=== PATIENT | female | born 1990 | race Caucasian/White ===

== ENCOUNTER → 2016-07-22 | Outpatient (CLI) | payer OTHER ==
[~2016-07-22] MED LIST: MOTR200T40 PO; TYLE325T5 PO; VITAPRTA PO
[2016-07-22 14:12] LABS: BASO % 0.4 % (0.0-1.0); EOS # 0.1 K/mm3 (0.0-0.50); EOS % 2.1 % (0.0-3.0); LARGE UNSTAINED CELL # 0.1 K/mm3 (0.0-0.4); LARGE UNSTAINED CELL % 1.1 % (0.0-4.0); LYMPH # 1.6 K/mm3 (1.5-6.5); LYMPH % 25.8 % (24.0-44.0); MEAN CORPUSCULAR HEMOGLOBIN 31.6 pg (27.0-33.0); MEAN CORPUSCULAR VOLUME 90.3 fl (80.0-96.0); MONO # 0.2 K/mm3 (0.0-0.8); MONO % 3.4 % (0.0-5.0); NEUTROPHILS # 4.2 K/mm3 (1.8-7.7); NEUTROPHILS % 67.2 % (36.0-66.0); PLATELET COUNT, AUTOMATED 234 k/mm3 (150-450); RED CELL DISTRIBUTION WIDTH 12.3 % (11.5-14.5); WHITE BLOOD COUNT 6.2 K/mm3 (4.0-10.0)
[2016-07-22 18:04] LABS: HIV SCRN NEGATIVE (NEGATIVE)
[2016-07-22 18:05] LABS: CONTROL LINE INT CTR LINE PRESENT; HIV SCRN1 NEGATIVE (NEGATIVE)
[2016-07-23 08:52] LABS: HBsAg Prenatal NEGATIVE (NEGATIVE)
== END ==
LOC: M SMT 10:05
PROVIDERS: ATTEND Advanced Practice Midwife
DX: Z34.81 Encounter for supervision of other normal pregnancy, first trimester (principal)

== ENCOUNTER → 2016-09-09 | Outpatient (CLI) | payer OTHER ==
[~2016-09-09] MED LIST changes: -MOTR200T40 PO; +MOTR200T44 PO
--- NOTE | 2016-09-10 12:06 | REP ---
OBSTETRIC SONOGRAPHY: HISTORY: Supervision of for anatomy. FINDINGS: Scanning through the gravid uterus demonstrates a viable single intrauterine gestation in a variable lie. motion is observed and heart rate is recorder 150 beats per minute. An anterior grade 0 placenta is seen without evidence of previa or abruption. Amniotic fluid is subjectively normal. Closed cervical length is 4.9 cm, viewed transabdominally. No extrauterine abnormality is observed. No anomaly is seen. The following anatomic structures are identified and felt to be sewn sonographically unremarkable: cranium, choroid plexus, cavum, cerebellum and posterior fossa, face and profile, lungs, four-chamber heart with left and right ventricular outflow tract views, diaphragm, left-sided stomach, abdominal wall cord insertion, three-vessel umbilical cord, kidneys and bladder, spine, upper and lower extremities. Biometry Chart: BPD 4.6 cm = 19 weeks 6 days HC 17.2 cm = 19 weeks 5 days AC 14.2 cm = 19 weeks 4 days FL 2.8 cm = 18 weeks 4 days HC/AC ratio normal 1.21 Cephalic index normal 0.73. Estimated weight 278 grams, 0 pounds 9 ounces, 32nd percentile for 19 weeks 4 days. IMPRESSION: Viable single intrauterine gestation at 19 weeks 4 days by today's composite criteria. SREE by today's sonography January 30, 2017. No anomaly is seen.
== END ==
LOC: M WHC 09:55
PROVIDERS: ATTEND Advanced Practice Midwife
DX: Z36 Encounter for antenatal screening of mother (principal); Z3A.19 19 weeks gestation of pregnancy

== ENCOUNTER → 2016-10-14 | Outpatient (REF) | payer OTHER | LOC: M WUC 16:16 | PROVIDERS: ATTEND Physician Assistant | DX: J02.9 Acute pharyngitis, unspecified (principal) ==

== ENCOUNTER → 2016-11-18 | Outpatient (CLI) | payer OTHER ==
[2016-11-18 13:44] LABS: MEAN CORPUSCULAR HEMOGLOBIN 32.3 pg (27.0-33.0); MEAN CORPUSCULAR HGB CONC 34.3 g/dl (32.0-36.5); MEAN CORPUSCULAR VOLUME 94.4 fl (80.0-96.0); RED CELL DISTRIBUTION WIDTH 12.7 % (11.5-14.5)
== END ==
LOC: M SMT 09:52
PROVIDERS: ATTEND Obstetrics & Gynecology
DX: Z34.82 Encounter for supervision of other normal pregnancy, second trimester (principal)

== ENCOUNTER → 2017-01-07 | Outpatient (REF) | payer OTHER | LOC: M LAB REF 17:08 | PROVIDERS: ATTEND Obstetrics & Gynecology | DX: Z34.83 Encounter for supervision of other normal pregnancy, third trimester (principal) ==

== ENCOUNTER 2017-02-02 10:47 | Inpatient (IN) | payer OTHER ==
[~2017-02-02] VITALS: Ht 160 cm; Wt 77.0 kg
[2017-02-02] VITALS (18 sets, daily range): BP systolic 100–145; BP diastolic 58–88
[2017-02-02] MEDS ORDERED: PENICILLIN G POTASSIUM IV 5 MU in D5W MINI-BAG PLUS 100 ML IV STA (11:03)
[2017-02-02 11:23] LABS: MEAN CORPUSCULAR HEMOGLOBIN 30.9 pg (27.0-33.0); MEAN CORPUSCULAR HGB CONC 34.4 g/dl (32.0-36.5); MEAN CORPUSCULAR VOLUME 89.9 fl (80.0-96.0); RED CELL DISTRIBUTION WIDTH 13.6 % (11.5-14.5); WHITE BLOOD COUNT 9.3 K/mm3 (4.0-10.0)
--- NOTE | 2017-02-02 11:34 | HPE ---
DATE OF ADMISSION: 02/02/2017 Martha is a 26-year-old, 3, para 1-0-1-1, at 40-3/7 weeks gestation with an estimated date of confinement (EDC) of 01/30/2017 based on first trimester ultrasound. She presents to labor and delivery today for induction of labor due to post dates per consult with Dr. Estefany Tellez. She denies regular contractions, vaginal bleeding and leakage of fluid. Her fetus has been active. care was initiated at [facility] in the first trimester. course has been uncomplicated. OBSTETRIC HISTORY: July of 2014, at 41 weeks gestation, she had a spontaneous vaginal delivery for a 7 pound 8 ounce female. April of 2016, she had a spontaneous miscarriage. OB LABS: Blood type is O negative. Antibody screen negative. Pap was normal. Rubella immune, VDRL nonreactive. Urine culture no growth. Hepatitis B surface antigen negative. HIV negative. Hepatitis C antibody nonreactive. Gonorrhea and chlamydia negative. She did decline all genetic serum screening markers. Gestational diabetic screening normal at 112 and her GBS is positive. PAST MEDICAL HISTORY: Childhood varicella. SURGERIES: None. FAMILY HISTORY: Hypertension. SOCIAL HISTORY: The patient is . Her is at bedside and supportive. She is a nonsmoker. Denies alcohol and drug use. No history of any sexually transmitted infections and no history of abuse physical, sexual or emotional. ALLERGIES: NO KNOWN DRUG ALLERGIES. CURRENT MEDICATIONS: Include: - Zyrtec 10 mg daily - Ventolin inhaler as needed - vitamin OBJECTIVE: Temperature 97.7, pulse 100, respirations 18. Initial blood pressure 145/76. She is alert and oriented times three. She is in no apparent distress, smiling and talkative. heart rate is 145 with moderate variability. Positive accelerations observed and no decelerations observed. There is no pattern of regular contractions. Her abdomen is gravid, cephalic presentation. Estimated weight 7 pounds. Sterile vaginal exam: 1 cm dilated, 80% effaced, minus 3 station. Membranes are intact. No show with exam. ASSESSMENT: Intrauterine at 40-3/7 weeks gestation. heart rate category 1. PLAN: Admit patient to labor and delivery. Out of bed ad norma. Regular diet at this time. Labs including a pre-eclamptic profile and a spot urine. Misoprostol 50 mcg by mouth for cervical ripening. Will likely start intravenous (IV) Pitocin. The patient does desire an epidural for her labor coping. Will likely have planned around to augment her labor once patient is comfortable with an epidural and labor. I do anticipate labor and a spontaneous vaginal delivery. I did review the risks of inductions with patient and her including but not limited to failed induction, intolerance to labor and increased risk for section. The patient did have all of her questions answered and does desire to proceed with induction of labor at this time. MTDD
[2017-02-02 11:50] LABS: ALT/SGPT 18 U/L (12-78); AST/SGOT 24 U/L (15-37); BILIRUBIN,TOTAL 0.3 MG/DL (0.2-1.0); CREATININE FOR GFR 0.72 MG/DL (0.55-1.02); GLOMERULAR FILTRATION RATE > 60.0 (>60); URIC ACID 5.7 MG/DL (2.6-6.0)
[2017-02-02] MEDS ORDERED: miSOPROStol 50 MCG 1/2 TAB (S0191) PO ONE (12:00)
[2017-02-02] MEDS: PENICILLIN G POTASSIUM IV 2.5 MU in D5W 100 ML IV SCH ×2 (15:29→20:26)
[2017-02-02] MEDS ORDERED: OXYTOCIN 30 UNITS IN 0.9% NaCl 500ML IV BAG (J2590) As Ordered ONE (16:55)
[2017-02-02] MEDS ORDERED: OXYTOCIN DRIP 30 UNITS in APPROPRIATE DILUENT 1 EA IV SCH (17:00)
[2017-02-02] MEDS: LR 1,000 ML IV SCH (17:08)
[2017-02-03] VITALS (40 sets, daily range): BP systolic 78–140; BP diastolic 40–82
[2017-02-03] MEDS: PENICILLIN G POTASSIUM IV 2.5 MU in D5W 100 ML IV SCH ×2 (00:05→03:53)
[2017-02-03] MEDS ORDERED: FENTANYL/ROPIVACAINE/NACL BAG 200 ML EPIDURAL SCH (00:58)
[2017-02-03] MEDS ORDERED: REFRIGERATOR IV KEYS XX PRN (00:58)
[2017-02-03] MEDS ORDERED: NALOXONE INJ 0.4 MG/1 ML VIAL (J2310) IV PRN (00:58)
[2017-02-03] MEDS ORDERED: EPIDURAL/PCA KEYS XX PRN (00:58)
[2017-02-03] MEDS ORDERED: LACTATED RINGER'S 1000 ML IV PRN (00:58)
[2017-02-03] MEDS ORDERED: ONDANSETRON 4MG/2ML VIAL (J2405) IV PRN (00:58)
[2017-02-03] MEDS ORDERED: diphenhydrAMINE INJ 50MG/ML VIAL (J1200) IV PRN (00:58)
[2017-02-03] MEDS ORDERED: ePHEDrine SULFATE 25 MG/5 ML(5MG/ML) SYRINGE IV PRN (00:58)
[2017-02-03] MEDS ORDERED: EPIDURAL COMMENT XX SCH (00:58)
[2017-02-03] MEDS ORDERED: FENTANYL 2MCG/ML ROPIVACAINE 0.2% IN 0.9% NACL 200ML IVBAG As Ordered ONE (01:03)
[2017-02-03] MEDS: LR 1,000 ML IV SCH (03:52)
[2017-02-03 05:34] LABS: CORD GAS ABE V -2.1; CORD GAS HCO3 V 24.9 MEQ/L; CORD GAS O2 SAT V 34.9 %; CORD GAS PCO2 V 50.6 mmHg; CORD GAS PH V 7.31 UNITS; CORD GAS PO2 V 19.4 mmHg; CORD GAS TCO2 V 26.5 MEQ/L
[2017-02-03] MEDS ORDERED: OXYTOCIN DRIP 30 UNITS in APPROPRIATE DILUENT 1 EA IV SCH (05:34)
[2017-02-03 05:36] LABS: CORD GAS ABE A -5.7; CORD GAS HCO3 A 22.8 MEQ/L; CORD GAS O2 SAT A 30.3 %; CORD GAS PCO2 A 56.2 mmHg; CORD GAS PH A 7.226 UNITS; CORD GAS PO2 A 18.4 mmHg; CORD GAS SBC A 18.2 MEQ/L; CORD GAS TCO2 A 24.5 MEQ/L
[2017-02-03] MEDS ORDERED: MEASLES,MUMPS,RUBELLA VACCINE INJ (MMR-II) (90707) SC SCH (05:45)
[2017-02-03] MEDS ORDERED: DIBUCAINE 1% OINTMENT 30GM TOP PRN (05:45)
[2017-02-03] MEDS ORDERED: METHYLERGONOVINE MALEATE 0.2 MG TAB PO PRN (05:45)
[2017-02-03] MEDS ORDERED: DOCUSATE SODIUM 100 MG CAP PO PRN (05:45)
[2017-02-03] MEDS ORDERED: RHOGAM 300 MCG (1500 IU) INJ (J2790) IM SCH (05:45)
[2017-02-03] MEDS ORDERED: ANUSOL HC CREAM 30GM TOP PRN (05:45)
[2017-02-03] MEDS: IBUPROFEN 800 MG TAB PO PRN ×2 (05:55→15:58)
[2017-02-03] MEDS: ACETAMINOPHEN 500 MG TAB PO PRN ×4 (05:56→19:44)
--- NOTE | 2017-02-03 06:12 | DN ---
DATE: 02/03/2017 Martha is a 26-year-old 3, para 2-0-1-2 now who was admitted to labor and delivery for induction of labor. Misoprostol and IV Pitocin was used and labor did ensue. She did utilize an epidural for her labor coping. She progressed to full dilation at 0425. She pushed to a normal spontaneous vaginal delivery of a live male infant in occiput anterior (OA) position with restitution to left occiput transverse (LOT) position at 0506. There is a nuchal cord times three, loose, but was reduced with a somersault maneuver at the time of delivery. was placed on maternal abdomen crying and active. His mouth and nares were bulb suctioned. The cord was clamped x2 and cut by the father of the baby. Cord gases and cord blood was obtained. Uterine hemostasis achieved with IV Pitocin rapid infusion and uterine fundal massage. Estimated blood loss 200 cc following expulsion of an intact placenta with three-vessel cord by Parker mechanism at 0512. Perineum and vagina were inspected and noted to have a peroneal abrasion. The abrasion was repaired with 3-0 Rapide for hemostasis. Felda male weighed 3028 grams, 7 pounds 2 ounces at 39. Mom and are naming their son Chema and the mom does plan to breastfeed. At the close of delivery, lap counts, instrument counts, needle counts were correct and verified.
[2017-02-03] MEDS: OXYTOCIN DRIP 30 UNITS in APPROPRIATE DILUENT 1 EA IV SCH ×3 (08:38→16:38)
[2017-02-03] MEDS ORDERED: METHYLERGONOVINE MALEATE 0.2 MG/ML VIAL (J2210) IM STA (08:38)
[2017-02-03] MEDS ORDERED: METHYLERGONOVINE MALEATE 0.2 MG/ML VIAL (J2210) As Ordered ONE (08:39)
[2017-02-03] MEDS: PRENATAL VITAMINS CHEWABLE TABLET PO SCH (09:00)
[2017-02-03] MEDS ORDERED: miSOPROStol 200 MCG TAB (S0191) PR ONE (09:00)
[2017-02-03 12:20] LABS: MEAN CORPUSCULAR HEMOGLOBIN 31.5 pg (27.0-33.0); MEAN CORPUSCULAR HGB CONC 34.9 g/dl (32.0-36.5); MEAN CORPUSCULAR VOLUME 90.3 fl (80.0-96.0); RED CELL DISTRIBUTION WIDTH 13.7 % (11.5-14.5)
[2017-02-04] VITALS (8 sets, daily range): BP systolic 83–124; BP diastolic 53–78
[2017-02-04] MEDS: IBUPROFEN 800 MG TAB PO PRN ×3 (01:54→19:27)
[2017-02-04] MEDS: PRENATAL VITAMINS CHEWABLE TABLET PO SCH (07:55)
[2017-02-04] MEDS: ACETAMINOPHEN 500 MG TAB PO PRN ×2 (07:56→14:13)
[2017-02-04 07:57] LABS: MEAN CORPUSCULAR HEMOGLOBIN 31.7 pg (27.0-33.0); MEAN CORPUSCULAR HGB CONC 34.5 g/dl (32.0-36.5); MEAN CORPUSCULAR VOLUME 91.8 fl (80.0-96.0); RED CELL DISTRIBUTION WIDTH 13.7 % (11.5-14.5); WHITE BLOOD COUNT 9.4 K/mm3 (4.0-10.0)
[2017-02-05 06:04] VITALS: BP 114/79
[2017-02-05] MEDS: IBUPROFEN 800 MG TAB PO PRN (06:20)
[2017-02-05] MEDS: PRENATAL VITAMINS CHEWABLE TABLET PO SCH (08:07)
== END 2017-02-05 10:15 | disposition home or self-care (01) | DRG 560 ==
LOC: M LDI 10:47 → M OBS 02-03 11:44
PROVIDERS: ADMIT Advanced Practice Midwife; ATTEND Advanced Practice Midwife
PROC: 3E0DXGC Introduction of Other Therapeutic Substance into Mouth and Pharynx, External Approach (ICD-10-PCS; 2017-02-02)
PROC: 10E0XZZ Delivery of Products of Conception, External Approach (ICD-10-PCS; principal; 2017-02-03)
DX: O48.0 Post-term pregnancy (principal); O72.1 Other immediate postpartum hemorrhage; Z37.0 Single live birth; Z3A.40 40 weeks gestation of pregnancy; O69.82X0 Labor and delivery complicated by other cord entanglement, without compression, not applicable or unspecified

== ENCOUNTER → 2018-08-25 | Outpatient (REF) | payer OTHER, SELFPAY | LOC: M LAB REF 16:52 | PROVIDERS: ATTEND Advanced Practice Midwife | DX: Z12.4 Encounter for screening for malignant neoplasm of cervix (principal) ==

== ENCOUNTER 2019-03-13 09:09 | Emergency (ER) | payer SELFPAY ==
[~2019-03-13] VITALS: Ht 160 cm; Wt 63.6 kg
[2019-03-13] MEDS ORDERED: [UNRECOGNIZED DRUG - CODE] (09:17)
[2019-03-13] MEDS ORDERED: NS 1,000 ML IV ONE (11:00)
[2019-03-13 11:21] LABS: BASO % 0.2 % (0.0-1.0); EOS % 0.2 % (0.0-3.0); HEMATOCRIT 43.2 % (36.0-47.0); HEMOGLOBIN 14.7 g/dl (12.0-15.5); LYMPH # 2.4 10^3/uL (1.5-5.0); MEAN CORPUSCULAR HEMOGLOBIN 31.5 pg (27.0-33.0); MEAN CORPUSCULAR VOLUME 92.7 fl (80.0-96.0); MONO # 0.4 10^3/uL (0.0-0.8); NEUTROPHILS # 5.9 10^3/uL (1.5-8.5); NEUTROPHILS % 67.1 % (36.0-66.0); PLATELET COUNT, AUTOMATED 297 10^3/uL (150-450); RED BLOOD COUNT 4.66 10^6/uL (4.00-5.40); WHITE BLOOD COUNT 8.8 10^3/uL (4.0-10.0)
[2019-03-13] MEDS ORDERED: ISOVUE-370 76% 100ML VIAL (Q9967) As Ordered ONE (11:33)
[2019-03-13 11:46] LABS: ALBUMIN 3.8 GM/DL (3.2-5.2); ALT/SGPT 21 U/L (12-78); BILIRUBIN,DIRECT < 0.1 MG/DL (0.0-0.2); BILIRUBIN,TOTAL 0.3 MG/DL (0.2-1.0); LIPASE 128 U/L (73-393); TOTAL PROTEIN 7.6 GM/DL (6.4-8.2)
--- NOTE | 2019-03-13 12:10 | REP ---
Clinical: Lower abdominal pain. Technique: Axial contrast enhanced images from the lung bases to the pubic symphysis using 100 ml Isovue 370 intravenous contrast material with coronal and sagittal re-formations. Findings: Lung bases are clear. Visualized heart and pericardium normal. Liver, spleen, pancreas, gallbladder, bilateral adrenal glands and kidneys are normal. The enteric system is without obstruction or acute inflammatory process. Normal terminal ileum and appendix are identified in the right lower quadrant. Pelvis demonstrates normal bladder and age-appropriate uterus/adnexa. Small amount of free pelvic fluid may be related to patient's symptoms and menstrual cycle including possible ruptured right ovarian cyst. IMPRESSION: 1. Small amount of free pelvic fluid may be related to patient's symptoms and menstrual cycle including possible ruptured right ovarian cyst. 2. Normal appendix. Electronically Signed by Rafael Borja MD 03/13/2019 12:02 P
[2019-03-13 12:44] VITALS: BP 107/65
== END 2019-03-13 12:43 | disposition home or self-care (01) ==
LOC: M ED 09:09
DX: N83.291 Other ovarian cyst, right side (principal)
CPT/HCPCS: 36415; 74177; 80047; 80076; 81001; 83690; 84702; 85025; 96360; 99284; Q9967

== ENCOUNTER → 2019-08-28 | Outpatient (REF) | payer OTHER ==
[~2019-08-28] MED LIST changes: +[UNRECOGNIZED DRUG - CODE]
== END ==
LOC: M PLALAB 11:17
PROVIDERS: ATTEND Advanced Practice Midwife
DX: Z12.4 Encounter for screening for malignant neoplasm of cervix (principal)

== ENCOUNTER → 2021-02-02 | Outpatient (REF) | payer BC, OTHER | LOC: M SFHCWAGY 19:15 | PROVIDERS: ATTEND Advanced Practice Midwife | DX: Z12.4 Encounter for screening for malignant neoplasm of cervix (principal) ==

== ENCOUNTER → 2021-05-14 | Outpatient (REF) | payer BC | LOC: M LAB REF 16:49 | PROVIDERS: ATTEND Physician Assistant | DX: R05.9 Cough, unspecified (principal) ==

== ENCOUNTER → 2021-05-31 | Outpatient (REF) | payer BC | LOC: M LAB REF 13:37 | PROVIDERS: ATTEND Physician Assistant Medical | DX: R50.9 Fever, unspecified (principal); R05.9 Cough, unspecified; R53.83 Other fatigue ==

== ENCOUNTER 2025-04-04 09:38 | Emergency (ER) | payer BC, OTHER ==
[~2025-04-04] VITALS: Ht 160 cm; Wt 65.6 kg
[2025-04-04] MEDS ORDERED: OMEP40CA5 PO (09:44)
[2025-04-04 10:59] LABS: BASO # 0.0 10^3/uL (0.0-0.2); BASO % 0.4 % (0.0-1.0); EOS # 0.3 10^3/uL (0.0-0.5); EOS % 6.1 % (0.0-3.0); KETONE, URINE AUTO RFX NEGATIVE (NEGATIVE); LEUKOCYTE ESTERASE UR AUTO RFX NEGATIVE (NEGATIVE); LYMPH # 1.5 10^3/uL (1.5-5.0); LYMPH % 31.2 % (24.0-44.0); MONO # 0.3 10^3/uL (0.0-0.8); MONO % 6.7 % (2.0-8.0); NEUTROPHILS # 2.6 10^3/uL (1.5-8.5); NEUTROPHILS % 55.4 % (36.0-66.0); NITRITE, URINE AUTO RFX NEGATIVE (NEGATIVE); PLATELET COUNT, AUTOMATED 257 10^3/uL (150-450); RBC, URINE AUTO RFX 0 /HPF (0-3); SQUAM EPITHELIAL CELL UR AURFX 5 /HPF (0-6); URINE PREG TEST NEGATIVE (NEGATIVE); WBC, URINE AUTO RFX 0 /HPF (0-3)
[2025-04-04] MEDS ORDERED: HOME MED LIST COMPLETE! XX SCH (11:35)
[2025-04-04 12:52] LABS: ALT/SGPT 13 U/L (7.0-40); AST/SGOT 18 U/L (<34); CALCIUM LEVEL 9.0 MG/DL (8.5-10.1); CARBON DIOXIDE LEVEL 26 MMOL/L (20-31); CHLORIDE LEVEL 107 MMOL/L (98-107); CREATININE FOR GFR 0.68 MG/DL (0.55-1.30); GLOMERULAR FILTRATION RATE > 90.0 (>60); POTASSIUM SERUM 3.9 MMOL/L (3.5-5.1); SODIUM LEVEL 140 MMOL/L (136-145)
[2025-04-04 12:56] VITALS: BP 107/74; TEMP 97.4; O2SAT 99
== END 2025-04-04 13:07 | disposition home or self-care (01) ==
LOC: M ED 09:38
DX: N20.0 Calculus of kidney (principal); N90.89 Other specified noninflammatory disorders of vulva and perineum; K76.0 Fatty (change of) liver, not elsewhere classified; Z79.899 Other long term (current) drug therapy